=== PATIENT | female | born 1950 | race Caucasian/White ===

== ENCOUNTER → 2019-12-20 12:06 | Outpatient (CLI) | payer MEDICARE, BC, SELFPAY ==
[2019-12-20 14:06] LABS: Ferritin 42 ng/mL (8-252); T4 Total, Thyroxin 10.9 ug/dL (4.8-13.9)
[2019-12-20 14:10] LABS: T3 Total - Triiodothyronine 1.02 ng/mL (0.6-1.81)
[2019-12-20 15:27] LABS: Absolute Lymphocyte Count 2.52 X10^3/uL (0.83-4.51); Absolute Neutrophil Count 14.7 X10^3/uL (2.0-7.7); Basophil# 0.09 X10^3/uL; Basophil% 0.5 % (0-1); Eosinophil# 0.06 X10^3/uL; Eosinophils% 0.3 % (0-5); Hematocrit 42.6 % (37-47); Hemoglobin 14.3 g/dL (12.0-15.0); Lymphocyte # 2.52 X10^3/ul (4.0); Lymphocyte % 13.5 % (19-41); Mean Corp Hgb Conc 33.6 g/dL (32-36); Mean Corpuscular Hgb 28.3 pg (27.0-32.0); Mean Corpuscular Volume 84.4 fL (81-99); Mean Platelet Vol. 9.1 fl (6.2-12.0); Monocyte# 1.17 X10^3/uL; Monocyte% 6.3 % (0-10); NRBC Flagged by Analyzer 0 % (0-5); Neutrophil # 14.73 X10^3/uL (2.7-7.7); Neutrophil % 78.8 % (47-70); Platelet Count 381 K/mm3 (150-450); RBC Distribution Width CV 12.7 % (11.6-14.6); RBC Distribution Width SD 38.7 fl (35.1-43.9); Red Blood Count 5.05 M/mm3 (4.2-5.4); White Blood Count 18.7 K/mm3 (4.4-11.0)
[2019-12-21 20:24] LABS: Thyroid Peroxidase AB 23 IU/mL (0-34)
== END ==
PROVIDERS: PCP Family Medicine; Referring Provider Dermatology Pediatric Dermatology; Visit Provider Dermatology Pediatric Dermatology
DX: L64.8 Other androgenic alopecia (principal); D48.5 Neoplasm of uncertain behavior of skin; M72.0 Palmar fascial fibromatosis [Dupuytren]
CPT/HCPCS: 36415; 82728; 84436; 84480; 85025; 86376